=== PATIENT | female | born 1940 | race Caucasian/White ===

== ENCOUNTER → 2021-10-16 | Outpatient (CLI) | payer MEDICARE, OTHER ==
--- NOTE | 2021-10-16 21:16 | CT ---
EXAMINATION TYPE: CT abdomen pelvis wo con DATE OF EXAM: 10/16/2021 COMPARISON: None available HISTORY: Calculus of kidney and ureter Automated exposure control for dose reduction was used. TECHNIQUE: Helical acquisition of images was performed from the lung bases through the pelvis. FINDINGS: Dense obstructing stone is seen at the most inferior aspect of the left ureter measuring 9 x 13 mm an d causing severe left-sided hydroureter and hydronephrosis. This is probably chronic. There is slight ly more proximal tiny calculus, seen at the inferior aspect of the left ureter measuring 8 mm. Nonobs tructing calculus is seen at the midpole of the left kidney measuring 12 x 14 mm. Severe cortical thi nning of the left renal parenchyma likely secondary to prolonged obstruction. No other definite radiodense renal, ureteric or urinary calculi. No right sided hydroureter or hydron ephrosis. Bilateral perinephric fat stranding. No definite renal lesion by this nonenhanced CT scan. Markedly distended urinary bladder without gross abnormality. Previous hysterectomy. No gross adnexal mass. No definite hepatic focal lesion identified by this nonenhanced CT scan. No radiodense gallbladder ca lculi. Unremarkable nonenhanced CT scan appearance of the spleen and adrenals. Atrophic pancreas. Sca ttered arterial atherosclerotic calcifications. Unremarkable stomach, duodenum and small bowel. Mild wall thickening of the sigmoid colon, nonspecific. Recommend correlation with colonoscopy results. No suspicious lymphadenopathy or sizable ascites. Small fat-containing umbilical hernia. Left proximal femoral fixation using a dynamic hip screw. Osteopenia. Degenerative changes of the lower lumbar spine with facet osteoarthropathy. Grade 1 anter olisthesis of L4 over L5, likely degenerative. Anterior wedging with about 60% height reduction and u pper endplate depression of the T12 vertebral body, likely chronic. Milder upper endplate compression of T11 is seen. Bony spinal canal stenosis is seen at T11-12 level due to retropulsion of the civil defense director ior margin of the fractured T12 vertebral body. Please correlate clinically and with previous unavail able images. Unremarkable lung bases. IMPRESSION: 1. 13 mm dense obstructing stone at the most inferior aspect of the left ureter causing severe left-s ided hydroureter and hydronephrosis and significant left renal cortical thinning/atrophy as detailed above. This is most likely chronic. Other left-sided calculi as described above. Recommend urology co nsultation. 2. Compression fractures of T12 and to a lesser extent T11 vertebral body with spinal canal stenosis as detailed above, possibly chronic and related to osteopenia or previous trauma, please correlate cl inically and with previous unavailable imaging. Other incidental findings as detailed above.
== END | disposition home or self-care (01) ==
LOC: RADCTMAIN 11:59
PROVIDERS: ATTEND Urology
DX: N13.2 Hydronephrosis with renal and ureteral calculous obstruction (principal); N13.4 Hydroureter
CPT/HCPCS: 74176

== ENCOUNTER → 2021-10-20 | Outpatient (CLI) | payer MEDICARE, OTHER ==
[2021-10-20 14:42] LABS: Appearance,Urine Cloudy (Clear); Bacteria,Urine Moderate /hpf; Bilirubin,Urine Negative (Negative); Blood,Urine Trace (Negative); Color,Urine Light Yellow; Glucose,Urine (UA) 3+ (Negative); Ketones,Urine Negative (Negative); Leukocyte Esterase,Urine Large (Negative); Mucus,Urine Rare /hpf; Nitrite,Urine Negative (Negative); PH, Urine 5.5 (5.0-8.0); Protein,Urine 1+ (Negative); RBC,Urine 11 /hpf (0-5); Specific Gravity,Urine 1.008 (1.001-1.035); Squamous Epithelial Cell,Urine 26 /hpf (0-4); Urobilinogen,Urine <2.0 mg/dL (<2.0); WBC,Urine 12 /hpf (0-5)
[2021-10-20 18:18] LABS: Basophils # (A) 0.04 X 10*3/uL (0.00-0.10); Basophils % (A) 0.7 %; Eosinophils # (A) 0.21 X 10*3/uL (0.04-0.35); Eosinophils % (A) 3.6 %; HCT 32.5 % (37.2-46.3); HGB 10.1 g/dL (12.0-15.0); Immature Grans, Automated 0.2 %; Lymphocytes # (A) 1.76 X 10*3/uL (0.90-5.00); Lymphocytes % (A) 30.3 %; MCH 29.2 pg (27.0-32.0); MCHC 31.1 g/dL (32.0-37.0); MCV 93.9 fL (80.0-97.0); Mean Platelet Volume 11.2 fL (9.5-12.2); Monocytes # (A) 0.41 X 10*3/uL (0.20-1.00); Monocytes % (A) 7.1 %; NRBC Per 100 WBC 0 /100 WBCS (0.0-0.0); Neutrophils # (A) 3.38 X 10*3/uL (1.80-7.70); Neutrophils % (A) 58.1 %; Platelet Count 194 X 10*3/uL (140-440); RBC 3.46 X 10*6/uL (4.10-5.20); RDW 13.3 % (11.5-14.5); WBC 5.81 X 10*3/uL (4.50-10.00)
[2021-10-20 18:21] LABS: African American GFR (CKD) 22.3 (60.0-200.0); Albumin 4.1 g/dL (3.8-4.9); Anion Gap 11.4 mmol/L (10.00-18.00); BUN/Creat Ratio 21.85 Ratio (12.00-20.00); Blood Urea Nitrogen 50.9 mg/dL (9.0-27.0); Calcium 9.1 mg/dL (8.7-10.3); Carbon Dioxide 19.1 mmol/L (20.0-27.5); Non-African American GFR(CKD) 19.3 (60.0-200.0); Potassium 4.4 mmol/L (3.5-5.5); Total Bilirubin 0.2 mg/dL (0.30-1.20); Total Protein 6.1 g/dL (6.2-8.2)
== END | disposition home or self-care (01) ==
LOC: LABPAT 12:28
PROVIDERS: ATTEND Urology
DX: Z01.818 Encounter for other preprocedural examination (principal); N20.1 Calculus of ureter
CPT/HCPCS: 80053; 81001; 85025; 87086

== ENCOUNTER 2021-10-22 06:07 | Day surgery (SDC) | payer MEDICARE, OTHER ==
[2021-10-20 16:16] VITALS: BMI 22.6
--- NOTE | 2021-10-21 12:35 | P.GSHP ---
History of Present Illness H&P Date: 10/21/21 81 yo female who saw dr galvan. Her cr was elevated and a renal us was done. SHe had a left renal stone with hydronephrosis. I saw the patient and orderd a ct scan which showed a 9mm distal ureteral stone with chronic left hydro and a thinned parenchyma. She comes for removal of the stone to try to save and remaining parenchyma. - Constitutional Constitutional: Denies chills, Denies fever - EENT Eyes: denies blurred vision, denies pain Ears, nose, mouth and throat: Denies headache, Denies sore throat - Cardiovascular Cardiovascular: Denies chest pain, Denies shortness of breath - Respiratory Respiratory: Denies cough, Denies 7 - Gastrointestinal Gastrointestinal: Denies abdominal pain, Denies diarrhea, Denies nausea, Denies vomiting - Genitourinary (Female) Genitourinary: Denies dysuria, Denies hematuria - Genitourinary (Male) Genitourinary: Denies dysuria, Denies hematuria - Musculoskeletal Musculoskeletal: Denies myalgias - Integumentary Integumentary: Denies pruritus, Denies rash - Neurological Neurological: Denies numbness, Denies weakness - Psychiatric Psychiatric: Denies anxiety, Denies depression - Endocrine Endocrine: Denies fatigue, Denies weight change Past Medical History Past Medical History: Diabetes Mellitus, Hyperlipidemia, Hypertension Additional Past Medical History / Comment(s): Hx "high BP, ok now". Current kidney stone. History of Any Multi-Drug Resistant Organisms: None Reported Past Surgical History: Hysterectomy Past Anesthesia/Blood Transfusion Reactions: Motion Sickness Additional Past Anesthesia/Blood Transfusion Reaction / Comment(s): Hx Motion Sickness X1. Past Psychological History: No Psychological Hx Reported Smoking Status: Former smoker Past Alcohol Use History: None Reported Additional Past Alcohol Use History / Comment(s): Quit smoking at 18 yrs old. Past Drug Use History: None Reported - Past Family History Mother Family Medical History: Cancer Daughter(s) Family Medical History: Cancer Additional Family Medical History / Comment(s): Colon cancer. Medications and Allergies Home Medications Medication Instructions Recorded Confirmed Type Cholecalciferol [Vitamin D3 (25 25 mcg PO DAILY 10/20/21 10/20/21 History Mcg = 1000 Iu)] Insulin Aspart [NovoLOG] 2 units SQ DIRECTED PRN 10/20/21 10/20/21 History Insulin Glargine,Hum.rec.anlog 6 unit SQ QAM 10/20/21 10/20/21 History [Lantus Solostar Pen] Insulin Glargine,Hum.rec.anlog 10 unit SQ HS 10/20/21 10/20/21 History [Lantus Solostar Pen] Rosuvastatin Calcium 5 mg PO HS 10/20/21 10/20/21 History Allergies Allergy/AdvReac Type Severity Reaction Status Date / Time Penicillins Allergy Rash/Hives Verified 10/20/21 16:20 Surgical - Exam - General well developed, well nourished, no distress - Eyes normal ocular movement, no icteric - ENT no hearing loss, no congestion - Neck no masses, trachea midline - Respiratory normal respiratory effort, clear to auscultation - Abdomen Abdomen: soft, non tender, no guarding, no rigid, no rebound - Integumentary no rash, no abnormal pigmentation - Neurologic no disoriented, no combative - Psychiatric oriented to time, oriented to person, oriented to place, speech is normal, memory intact Results - Imaging CT scan - abdomen: report reviewed, image reviewed CT scan - pelvis: report reviewed, image reviewed Assessment and Plan Assessment: Impression: left ureteral stone with chronic left hydro Plan: left ureterscopy with laser lithotripsy and stent placement.
[2021-10-22] MEDS ORDERED: ONDANSETRON 4 MG/2 ML VIAL IVP ONE (06:34)
[2021-10-22] MEDS ORDERED: LIDOCAINE 1% (10MG/ML) FOR IV START INTRADERMA PRN (06:34)
[2021-10-22] MEDS ORDERED: HYDROmorphone 0.5 MG/0.5 ML SYRINGE IVP PRN (07:00)
[2021-10-22] MEDS: LACTATED RINGERS 1,000 ML IV SCH ×2 (07:07→07:28)
[2021-10-22 07:09] LABS: Glucose,Whole Blood 133 mg/dL (75-99)
[2021-10-22] MEDS ORDERED: PROPOFOL 10 MG/ML 20 ML VIAL IV ONE (07:25)
[2021-10-22] MEDS ORDERED: PHENYLEPHRINE-0.9% NACL SYG 1,000 MCG/10 ML SYRINGE ONE (07:25)
[2021-10-22] MEDS ORDERED: fentaNYL (PF) 50 MCG/ML 2 ML AMP ONE (07:25)
[2021-10-22] MEDS ORDERED: SUCCINYLCHOLINE CHLORIDE 100 MG/5 ML SYR IV ONE (07:25)
[2021-10-22] MEDS ORDERED: LIDOCAINE 1% INJ 10MG/ML (20 ML MDV) ONE (07:25)
[2021-10-22] MEDS ORDERED: MIDAZOLAM 2 MG/2 ML VIAL ONE (07:25)
[2021-10-22] MEDS ORDERED: ePHEDrine 50 MG/ML 1 ML VIAL ONE (07:25)
[2021-10-22 09:26] VITALS: TEMP 96.7
--- NOTE | 2021-10-22 09:26 | P.OP ---
Date of Procedure: 10/22/21 Preoperative Diagnosis: Left ureteral obstruction secondary to large ureteral calculus at the ureterovesical junction, chronic hydronephrosis Postoperative Diagnosis: Same Procedure(s) Performed: Cystoscopy, left ureteroscopy with laser lithotripsy, placement of 624 stent Anesthesia: SENAIT Surgeon: Kenneth Chávez Estimated Blood Loss (ml): 0 Pathology: other (Stone) Condition: stable Disposition: PACU Indications for Procedure: Patient is 81. She presented with renal insufficiency. An ultrasound showed left hydronephrosis. She was sent to me and a computed tomography scan identified a chronic left hydroureteronephrosis due to a 1 cm distal ureteral stone causing obstruction. This hydronephrosis is significant but I felt there were with probable enough parenchyma to merit removing the stone and placed a stent Description of Procedure: The patient is brought to the operating suite. She is given a general anesthesia. She's placed lithotomy position with sterile prep and drape. Cystoscopy performed. She does have a cystocele. The bladder ryan unremarkable. The left ureteral orifice is identified. I then pass a semirigid scope up to the very large stone. With the 365 probe and 6 W of energy the stone was broken into tiny pieces and flushed out of the ureter. Eventually passed into the dilated proximal left ureter. I then pass an 035 wire up into the left kidney. I reintroduced the ureteroscope and am able to break the re maining portion of the stone. There is only sand and there are no large fragments. I removed the ureteroscope. Over the wires passed a 6 x 24 double-J catheter that coils in the left renal pelvis and the bladder. The bladder is drained. The patient is awakened and returned recovery room good condition. She'll be discharged home upon recovery and follow in the office in one week. The stent will remain in 3-4 weeks.
[2021-10-22] MEDS ORDERED: hydrALAZINE HCL 20 MG/ML 1 ML VIAL IVP ONE (09:49)
[2021-10-22 13:03] VITALS: RESP 18
[2021-10-22 13:27] VITALS: BP 148/74; PULSE 89
--- NOTE | 2021-10-22 16:47 | FL ---
Fluoroscopy INDICATION: Pain FINDINGS: Fluoroscopy time: 14 seconds. Images obtained: 8. IMPRESSIONS: 1. Documentation of fluoroscopy.
== END 2021-10-22 13:45 | disposition home or self-care (01) ==
LOC: OR 06:07
PROVIDERS: ATTEND Urology
DX: N13.2 Hydronephrosis with renal and ureteral calculous obstruction (principal); E11.9 Type 2 diabetes mellitus without complications; E78.5 Hyperlipidemia, unspecified; I10 Essential (primary) hypertension; N28.9 Disorder of kidney and ureter, unspecified; Z87.891 Personal history of nicotine dependence; Z79.4 Long term (current) use of insulin; Z79.899 Other long term (current) drug therapy; Z88.0 Allergy status to penicillin; Z90.710 Acquired absence of both cervix and uterus; Z80.0 Family history of malignant neoplasm of digestive organs
CPT/HCPCS: 82365; 52356; C2625; C1769; J2250; J0360; J2405; J0690; J2001; J3010; J2370; J0330; J2704

== ENCOUNTER → 2022-01-14 | Outpatient (CLI) | payer MEDICARE, OTHER ==
[2022-01-14 18:08] LABS: Basophils # (A) 0.08 X 10*3/uL (0.00-0.10); Basophils % (A) 0.8 %; Eosinophils # (A) 0.15 X 10*3/uL (0.04-0.35); Eosinophils % (A) 1.5 %; HCT 31.3 % (37.2-46.3); HGB 9.9 g/dL (12.0-15.0); Immature Grans, Automated 0.6 %; Lymphocytes # (A) 1.95 X 10*3/uL (0.90-5.00); Lymphocytes % (A) 19.6 %; MCH 29.9 pg (27.0-32.0); MCHC 31.6 g/dL (32.0-37.0); MCV 94.6 fL (80.0-97.0); Mean Platelet Volume 11.4 fL (9.5-12.2); Monocytes # (A) 0.52 X 10*3/uL (0.20-1.00); Monocytes % (A) 5.2 %; NRBC Per 100 WBC 0 /100 WBCS (0.0-0.0); Neutrophils # (A) 7.18 X 10*3/uL (1.80-7.70); Neutrophils % (A) 72.3 %; Platelet Count 232 X 10*3/uL (140-440); RBC 3.31 X 10*6/uL (4.10-5.20); RDW 13.7 % (11.5-14.5); WBC 9.94 X 10*3/uL (4.50-10.00)
[2022-01-14 19:03] LABS: African American GFR (CKD) 19.5 (60.0-200.0); Albumin 4.1 g/dL (3.8-4.9); Albumin/Globulin Ratio 1.28 (1.60-3.17); Anion Gap 15.6 mmol/L (10.00-18.00); BUN/Creat Ratio 25.27 Ratio (12.00-20.00); Blood Urea Nitrogen 65.7 mg/dL (9.0-27.0); Calcium 9.4 mg/dL (8.7-10.3); Carbon Dioxide 17.4 mmol/L (20.0-27.5); Globulin 3.2 g/dL (1.6-3.3); Non-African American GFR(CKD) 16.9 (60.0-200.0); Potassium 4.2 mmol/L (3.5-5.5); Total Bilirubin 0.3 mg/dL (0.30-1.20); Total Protein 7.3 g/dL (6.2-8.2)
[2022-01-14 19:30] LABS: Appearance,Urine Turbid (Clear); Bacteria,Urine 3+ /HPF (None Seen); Bilirubin,Urine Negative (Negative); Blood,Urine Moderate (Negative); Color,Urine Yellow (Yellow); Ketones,Urine Negative (Negative); Nitrite,Urine Negative (Negative); Specific Gravity,Urine 1.009 (1.001-1.030); Urobilinogen,Urine 0.2 (0.2,1.0)
== END | disposition home or self-care (01) ==
LOC: LABPAT 11:07
PROVIDERS: ATTEND Urology
DX: Z01.812 Encounter for preprocedural laboratory examination (principal); N20.1 Calculus of ureter; R31.29 Other microscopic hematuria
CPT/HCPCS: 36415; 80053; 81001; 85025; 87086

== ENCOUNTER 2022-01-21 05:52 | Day surgery (SDC) | payer MEDICARE, OTHER ==
--- NOTE | 2022-01-20 19:33 | P.GSHP ---
History of Present Illness H&P Date: 01/20/22 81 yo female wit a history of stones. He underwent a left ureteroscopy with laser lithotripsy to a large distal ureteral stone. The stone had been present for a long time as she had severe left hydroureteronephrosis. SHe had a stent for some time and it was removed. She recently was in [facility] with a uti with sepsis and was founf to have more and new left distal ureteral stones. She came back to see me. We decided to do another ureteroscopy left ith laser lithotripsy. SHe understands that she has chronic hydro left with a diminished functioning kidney left. - Constitutional Constitutional: Denies chills, Denies fever - EENT Eyes: denies blurred vision, denies pain Ears, nose, mouth and throat: Denies headache, Denies sore throat - Cardiovascular Cardiovascular: Denies chest pain, Denies shortness of breath - Respiratory Respiratory: Denies cough, Denies 7 - Gastrointestinal Gastrointestinal: Denies abdominal pain, Denies diarrhea, Denies nausea, Denies vomiting - Genitourinary (Female) Genitourinary: Denies dysuria, Denies hematuria - Genitourinary (Male) Genitourinary: Denies dysuria, Denies hematuria - Musculoskeletal Musculoskeletal: Denies myalgias - Integumentary Integumentary: Denies pruritus, Denies rash - Neurological Neurological: Denies numbness, Denies weakness - Psychiatric Psychiatric: Denies anxiety, Denies depression - Endocrine Endocrine: Denies fatigue, Denies weight change Past Medical History Past Medical History: Diabetes Mellitus, Hyperlipidemia, Hypertension, Renal Disease Additional Past Medical History / Comment(s): used to have high BP, now tends to run low BP stephen. when standing, Current kidney stones History of Any Multi-Drug Resistant Organisms: C-DIFF Date of last positivie culture/infection: unk MDRO Source:: stool Past Surgical History: Hysterectomy, Orthopedic Surgery Additional Past Surgical History / Comment(s): cystoscopy & lithotripsy in 2021 ORIF left femur near hip Past Anesthesia/Blood Transfusion Reactions: No Reported Reaction, Motion Sickness Additional Past Anesthesia/Blood Transfusion Reaction / Comment(s): Hx Motion Sickness X1. Smoking Status: Former smoker - Past Family History Mother Family Medical History: Cancer Daughter(s) Family Medical History: Cancer Additional Family Medical History / Comment(s): Colon cancer. Medications and Allergies Home Medications Medication Instructions Recorded Confirmed Type Cholecalciferol [Vitamin D3 (25 25 mcg PO DAILY 10/20/21 01/20/22 History Mcg = 1000 Iu)] Insulin Aspart [NovoLOG] See Protocol SQ DIRECTED PRN 10/20/21 01/20/22 History Insulin Glargine,Hum.rec.anlog 5 unit SQ QAM 10/20/21 01/20/22 History [Lantus Solostar Pen] Insulin Glargine,Hum.rec.anlog 10 unit SQ HS 10/20/21 01/20/22 History [Lantus Solostar Pen] Rosuvastatin Calcium 5 mg PO HS 10/20/21 01/20/22 History Ascorbic Acid [Vitamin C] 500 mg PO DAILY 01/20/22 01/20/22 History Zinc 50 mg PO DAILY 01/20/22 01/20/22 History Allergies Allergy/AdvReac Type Severity Reaction Status Date / Time Penicillins Allergy itching, Verified 01/20/22 12:06 mild vomiting Surgical - Exam - General well developed, well nourished, no distress - Eyes normal ocular movement, no icteric - ENT no hearing loss, no congestion - Neck no masses, trachea midline - Respiratory normal respiratory effort, clear to auscultation - Abdomen Abdomen: soft, non tender, no guarding, no rigid, no rebound - Integumentary no rash, no abnormal pigmentation - Neurologic no disoriented, no combative - Psychiatric oriented to time, oriented to person, oriented to place, speech is normal, memory intact Results - Imaging CT scan - abdomen: report reviewed CT scan - pelvis: report reviewed Assessment and Plan Assessment: Impression: Left ureteral stones. Chronic left hydronephrosis Plan: cysto , left ureteroscopy with laser lithotripsy and possible stent
[~2022-01-21 05:52] MED LIST: GENTAMICIN 80 MG in SODIUM CHLORIDE 0.9% 100 ML IVPB PRN; HYDROmorphone 0.5 MG/0.5 ML SYRINGE IVP PRN; LACTATED RINGERS 1,000 ML IV SCH; LIDOCAINE 1% (10MG/ML) FOR IV START INTRADERMA PRN; ONDANSETRON 4 MG/2 ML VIAL IVP ONE
--- NOTE | 2022-01-21 06:26 | XR ---
EXAMINATION TYPE: XR KUB DATE OF EXAM: 01/21/2022 COMPARISON: NONE HISTORY: Preop kidney surgery TECHNIQUE: Single view FINDINGS: There is triangular-shaped 12 mm calculus over the left kidney. No sign of intestinal obstr uction or pneumoperitoneum. Fecal pattern is normal. There are numerous phleboliths in the pelvis. No evidence of a mass. IMPRESSION: Nonacute abdomen. Left renal calculus.
[2022-01-21] MEDS ORDERED: DEXAMETHASONE SOD PHOSPHATE 4 MG/ML 1 ML VIAL IVP ONE (07:15)
[2022-01-21 07:27] LABS: Glucose,Whole Blood 129 mg/dL (75-99)
--- NOTE | 2022-01-21 08:29 | P.OP ---
Date of Procedure: 01/21/22 Preoperative Diagnosis: Left ureteral stone Postoperative Diagnosis: Same, left ureteral stricture with calcification Procedure(s) Performed: Cystoscopy, left ureteroscopy with laser lithotripsy and laser incision of ureteral stricture Anesthesia: SENAIT Surgeon: Kenneth Chávez Estimated Blood Loss (ml): 0 Pathology: none sent Condition: stable Disposition: PACU Indications for Procedure: The patient is 81. She has kidney stone disease. Several months ago I did left ureteroscopy laser lithotripsy. She had lodged a large stone in the distal ureter and had significant chronic left hydroureteronephrosis. The patient did well only to lodge another stone in the distal ureter. She comes for removal of this. Description of Procedure: The patient is brought to the operating suite. She is given a general anesthetic. She's placed in lithotomy position and sterile prep and drape. Cystoscopy of the Foroblique lens and 21-Lao sheath identifies a normal urethra. There is a moderate cystocele. The bladder ryan unremarkable. The left ureteral orifice is identified. With a 7-Lao mini ureteroscope I passed through the left distal ureter were identified stone. I passed an 035 wire along the stone up in the kidney. I removed the ureteroscope and passed alongside the wire. Through the ureteroscope I passed a 365 laser probe break the stone into tiny fragments. As to be a stricture the ureter. The stricture appears to be calcified. With the laser I do a laser vision ureteral stricture plus break and remove stone that is calcified and the mucosa of the stricture. I then pass ureteroscope up to the proximal ureter and see no remaining ureteral stone. I pulled back into the area of the distal left ureter where the calcification of the stricture was most of that has been relieved. I removed the ureteroscope and then over the wire a 6 x 24 double-J catheters passed into the renal pelvis and the bladder confirmed endoscopically and fluoroscopically. The bladder strain the patient's awakened and returned recovery in good condition. Impression successful removal left obstructing stone. Successful incision of left ureteral stricture and removal of calcium in the ureteral stricture. Recommendations. The patient be discharged home upon recovery. The stent will stay in 6 weeks.
[2022-01-21 08:42] VITALS: TEMP 97
--- NOTE | 2022-01-21 08:49 | FL ---
Fluoroscopy INDICATION: Pain FINDINGS: Fluoroscopy time: 4 seconds. Images obtained: 2. IMPRESSIONS: 1. Documentation of fluoroscopy.
[2022-01-21 08:51] LABS: Glucose,Whole Blood 158 mg/dL (75-99)
[2022-01-21] MEDS ORDERED: LABETALOL SYRINGE 5 MG/ML IVP ONE (08:54)
[2022-01-21] MEDS ORDERED: hydrALAZINE HCL 20 MG/ML 1 ML VIAL IVP ONE (09:19)
[2022-01-21] MEDS ORDERED: LIDOCAINE 2% INJ 20 MG/ML (2 ML VIAL) ONE (09:24)
[2022-01-21] MEDS ORDERED: PROPOFOL 10 MG/ML 20 ML VIAL IV ONE (09:24)
[2022-01-21] MEDS ORDERED: ePHEDrine 50 MG/ML 1 ML VIAL ONE (09:24)
[2022-01-21] MEDS ORDERED: fentaNYL (PF) 50 MCG/ML 2 ML AMP ONE (09:24)
[2022-01-21 10:12] LABS: Glucose,Whole Blood 177 mg/dL (75-99)
[2022-01-21 11:25] VITALS: BP 135/74; PULSE 84; RESP 16
== END 2022-01-21 11:45 | disposition home or self-care (01) ==
LOC: OR 05:52
PROVIDERS: ATTEND Urology
DX: N13.2 Hydronephrosis with renal and ureteral calculous obstruction (principal); E11.9 Type 2 diabetes mellitus without complications; E78.5 Hyperlipidemia, unspecified; I10 Essential (primary) hypertension; Z87.440 Personal history of urinary (tract) infections; Z87.442 Personal history of urinary calculi; Z87.891 Personal history of nicotine dependence; Z88.0 Allergy status to penicillin
CPT/HCPCS: 52356; 74420; 74018; C2625; C1769; J0360; J1100; J2405; J3010; J1580; J2704; J2001

== ENCOUNTER → 2022-09-29 | Outpatient (CLI) | payer MEDICARE, OTHER ==
[2022-09-29 18:39] LABS: Basophils # (A) 0.05 X 10*3/uL (0.00-0.10); Basophils % (A) 0.6 %; Eosinophils # (A) 0.23 X 10*3/uL (0.04-0.35); Eosinophils % (A) 2.6 %; HCT 30.7 % (37.2-46.3); HGB 9.8 g/dL (12.0-15.0); Immature Grans, Automated 0.3 %; Lymphocytes # (A) 1.78 X 10*3/uL (0.90-5.00); Lymphocytes % (A) 19.8 %; MCH 30.1 pg (27.0-32.0); MCHC 31.9 g/dL (32.0-37.0); MCV 94.2 fL (80.0-97.0); Mean Platelet Volume 11.8 fL (9.5-12.2); Monocytes # (A) 0.53 X 10*3/uL (0.20-1.00); Monocytes % (A) 5.9 %; NRBC Per 100 WBC 0 /100 WBCS (0.0-0.0); Neutrophils # (A) 6.38 X 10*3/uL (1.80-7.70); Neutrophils % (A) 70.8 %; Platelet Count 162 X 10*3/uL (140-440); RBC 3.26 X 10*6/uL (4.10-5.20)
[2022-09-29 18:52] LABS: % Iron Saturation 18.72 (12.00-45.00); African American GFR (CKD) 8.5 (60.0-200.0); Albumin 4.2 g/dL (3.8-4.9); Albumin/Globulin Ratio 1.75 (1.60-3.17); Anion Gap 21.1 mmol/L (10.00-18.00); BUN/Creat Ratio 14.52 Ratio (12.00-20.00); Blood Urea Nitrogen 75.5 mg/dL (9.0-27.0); Calcium 9.1 mg/dL (8.7-10.3); Carbon Dioxide 18.9 mmol/L (20.0-27.5); Globulin 2.4 g/dL (1.6-3.3); Magnesium 2.2 mg/dL (1.5-2.4); Non-African American GFR(CKD) 7.3 (60.0-200.0); Phosphorus 4.6 mg/dL (2.4-5.1); Potassium 3.8 mmol/L (3.5-5.5); Total Bilirubin 0.3 mg/dL (0.30-1.20); Total Protein 6.6 g/dL (6.2-8.2); Uric Acid 6.7 mg/dL (2.9-7.7)
== END | disposition home or self-care (01) ==
LOC: LABWHC1 12:32
PROVIDERS: ATTEND Nurse Practitioner Acute Care
DX: N25.81 Secondary hyperparathyroidism of renal origin (principal); N18.4 Chronic kidney disease, stage 4 (severe); N39.0 Urinary tract infection, site not specified; E55.9 Vitamin D deficiency, unspecified; M10.9 Gout, unspecified; D63.1 Anemia in chronic kidney disease; R80.9 Proteinuria, unspecified
CPT/HCPCS: 36415; 80053; 82306; 82728; 83540; 83550; 83735; 83970; 84100; 84550; 85025

== ENCOUNTER 2024-07-21 08:36 | Day surgery (SDC) | payer MEDICARE, OTHER ==
[2024-07-21 09:53] VITALS: RESP 16; TEMP 97.4
[2024-07-21 10:00] LABS: INR 1.3 (<1.2); Prothrombin Time 13.6 sec (10.0-12.5)
[2024-07-21 10:17] LABS: Mean Platelet Volume 9.9; Platelet Count 177 k/uL (150-450)
--- NOTE | 2024-07-21 11:43 | XR ---
EXAMINATION TYPE: XR chest 1V portable DATE OF EXAM: 07/21/2024 CLINICAL HISTORY: Status post thoracentesis TECHNIQUE: Single frontal view of the chest is obtained. COMPARISON: 07/10/2024 FINDINGS: Diminution in right-sided pleural effusion without sizable pneumothorax identified at this time. There is no focal air space opacity, pleural effusion, or pneumothorax seen. The cardiac silho uette size is within normal limits. The osseous structures are intact. IMPRESSION: Diminution in right-sided pleural effusion without sizable pneumothorax identified at th is time. [facility], , 07/21/2024 11:41 AM
--- NOTE | 2024-07-21 11:45 | US ---
EXAMINATION TYPE: US thoracentesis DATE OF EXAM: 07/21/2024 10:56 AM COMPARISON: Chest radiograph 07/10/2024 CLINICAL INDICATION:Female, 83 years old with history of J90 PLEURAL EFFUSION, NOT ELSEWHERE CLASSIFI E; PROCEDURE: Informed consent was obtained. The risks of the procedure were extensively explained incl uding risk of pneumothorax and need for chest tube placement. Procedure was performed in the Ultraso und procedure suite. Ultrasound imaging of the chest demonstrates right pleural effusion. An approp riate access site was localized to the right pleural space. Timeout was taken per protocol. The skin was prepped and draped in the usual sterile fashion and then locally anesthetized with 1% lidocaine. The pleural cavity was then accessed via a 5-Kinyarwanda one-step needle/catheter. Approximately 1100 c c of clear straw-colored fluid was obtained. Samples were sent to the lab for analysis. Postprocedur al imaging of the chest demonstrate a decreased amount of pleural fluid. Patient tolerated procedure well without immediate complication. Hemostasis at the procedural site w as obtained with a sterile bandage placed. Immediate following the procedure, an inspiratory and expi ratory chest x-ray was reviewed. No post procedure pneumothorax was identified. The patient was monit ored in the holding area for approximately one hour following the procedure and was subsequently disc harged in stable condition. IMPRESSION: Ultrasound guided thoracentesis, with approximately 1100 cc of clear straw-colored fluid drained. Pathology results pending. No immediate complications were evident. [facility], , 07/21/2024 11:42 AM
[2024-07-21 12:19] VITALS: BP 130/59; PULSE 65
== END 2024-07-21 11:50 | disposition home or self-care (01) ==
LOC: RADPROMAIN 08:36
PROVIDERS: ATTEND Internal Medicine Critical Care Medicine
DX: J90 Pleural effusion, not elsewhere classified (principal)
CPT/HCPCS: 32555; 36415; 71045; 85049; 85610